=== PATIENT | female | born 1945 | race Caucasian/White ===

== ENCOUNTER 2017-06-03 12:42 | Outpatient (CLI) | payer MEDICARE ==
--- NOTE | 2017-06-04 06:54 | CT ---
CONTRAST ENHANCED CT IMAGES ABDOMEN AND PELVIS: DATE: 06/03/17. COMPARISON: Comparison is made to a previous exam from 08/11/16. FINDINGS: CT images demonstrate the lung bases to be unremarkable. No evidence of free intraperitoneal air is seen. The liver and spleen are unremarkable. The gallbladder and pancreas are unremarkable. Adrenal gland s unremarkable. There is mild to moderate dilatation of the right renal pelvis and proximal right ur eter. The right ureter at approximately image #67 appears to be anteromedially compressed by an intr apelvic mass which was not present previously. Multiple newly developed intraperitoneal pelvic masses are present and have developed in the interim. The largest of these along the anterior aspect of the peritoneal cavity. Three-dimensional measure ments measure 10.0 x 6.4 x 6.7 cm. Numerous other pelvic masses seen, too numerous to count individu ally. The abdominal aortic aneurysm has also enlarged. The maximum dimension now measures 4.2 x 4.6 cm. T he superior inferior length measures approximately 7.8 cm. This appears to have increased compared t o the previous maximum axial measurement of 4.1 x 5.3 cm. Extensive sigmoid colonic diverticulosis is also present. IMPRESSION: Numerous newly developed intraperitoneal pelvic masses. One appears to be compressing the right uret er resulting in some right-sided hydronephrosis. Message left at 3:02 p.m. on 06/03/17. CODE CR POS: [facility]
== END 2017-06-03 12:43 | disposition home or self-care (01) ==
LOC: SCSCT 12:42
PROVIDERS: ATTEND Internal Medicine Hematology & Oncology
DX: C26.0 Malignant neoplasm of intestinal tract, part unspecified (principal); R19.00 Intra-abdominal and pelvic swelling, mass and lump, unspecified site; N13.30 Unspecified hydronephrosis
CPT/HCPCS: 36415; 74177; 80053; 82248; 83615; 84100; 84550

== ENCOUNTER 2017-07-23 11:26 | Day surgery (SDC) | payer MEDICARE ==
[2017-07-22 14:41] VITALS: BMI 29.2
[2017-07-23 12:40] LABS: Hemoglobin 11.2 g/dL (12.0-16.0)
[2017-07-23] MEDS ORDERED: Midazolam HCl 2 mg/2 ml Vial ONE (13:07)
[2017-07-23] MEDS ORDERED: ePHEDrine/0.9% NaCl/PF SYRINGE 50 mg/10 ml ONE (14:05)
[2017-07-23] MEDS ORDERED: PHENYLEPHRINE-NS 100 MCG/ML 10 ML SYRINGE ONE (14:05)
[2017-07-23] MEDS ORDERED: Propofol 200 MG/20 ML VIAL ONE (14:05)
--- NOTE | 2017-07-23 18:24 | OP ---
PREPROCEDURE DIAGNOSES: 1. Anemia with some concern for gastrointestinal bleeding. Hemoglobin was 9.9 on 07/22. 2. Recent cardiac myocardial infarction with stent placement in 06/2017 with 2 stents placed, starte d Plavix at that time. 3. Hemoglobin 11.5 today. 4. Questionable reported "dark stools" and in the office yesterday had some scant red blood with bro wn stool in the rectal exam. 5. History of gastrointestinal stromal tumor, metastatic. POSTPROCEDURE DIAGNOSES: 1. Normal esophagogastroduodenoscopy. 2. Colonoscopy notable for diverticulosis coli in sigmoid colon and internal hemorrhoids, likely allyson rce of bleeding. 3. No active bleeding. Otherwise no ulcers or erosions. ANESTHESIA: TIVA. PROCEDURE IN DETAIL: After the patient was informed of the risks, benefits, possible complications o f endoscopy including perforation, bleeding, reactions to medication and aspiration, informed consent was obtained. The patient was brought to endoscopy suite where she was sedated in gradual fashion. Once she was comfortable, a bite block was placed in incisural orifice. The endoscope was advanced through the esophagus, stomach and second and third portion of duodenum. The esophagus was normal. The stomach was normal. The duodenum was normal to the third portions. No bleeding sites were ident ified, no gastritis was noted. Retroflexed views in the stomach were normal. The scope was removed. The patient was turned in the room. A rectal examination was performed revealing significant interna l hemorrhoids with no active bleeding. The endoscope was advanced through anal canal, through the co kamla to the cecum which was identified by ileocecal valve and appendiceal orifice. Terminal ileum was normal. There were no bleeding sites or tumors noted in the colon. There was diverticulosis coli i n the left colon. Retroflexed views revealed prominent internal hemorrhoids. The scope was removed. The patient tolerated the procedure well with no complications. If the patient has ongoing question of bleeding, we consider capsule endoscopy of the small bowel.
--- NOTE | 2017-07-25 09:17 | EKG ---
Test Reason : PREOP Blood Pressure : / mmHG Vent. Rate : 060 BPM Atrial Rate : 060 BPM P-R Int : 170 ms QRS Dur : 086 ms QT Int : 392 ms P-R-T Axes : 045 -05 035 degrees QTc Int : 392 ms Normal sinus rhythm Normal ECG When compared with ECG of 29-JUL-2014 20:38, Nonspecific T wave abnormality now evident in Lateral leads Confirmed by ASHANTI GARVEY ([id number]) on 07/25/2017 9:17:28 AM Referred By: SONIA Confirmed By:ASHANTI GARVEY
== END 2017-07-23 15:08 | disposition home or self-care (01) ==
LOC: SDC 11:26
PROVIDERS: ATTEND Internal Medicine Gastroenterology
PROC: 0DJD8ZZ Inspection of Lower Intestinal Tract, Via Natural or Artificial Opening Endoscopic (ICD-10-PCS; principal; 2017-07-23)
PROC: 0DJ08ZZ Inspection of Upper Intestinal Tract, Via Natural or Artificial Opening Endoscopic (ICD-10-PCS; 2017-07-23)
DX: D64.9 Anemia, unspecified (principal); I25.2 Old myocardial infarction; K57.30 Diverticulosis of large intestine without perforation or abscess without bleeding; K64.8 Other hemorrhoids; I10 Essential (primary) hypertension; E03.9 Hypothyroidism, unspecified; M35.00 Sjogren syndrome, unspecified; M35.9 Systemic involvement of connective tissue, unspecified; E89.2 Postprocedural hypoparathyroidism; C79.89 Secondary malignant neoplasm of other specified sites; C80.1 Malignant (primary) neoplasm, unspecified; Z79.02 Long term (current) use of antithrombotics/antiplatelets; Z79.899 Other long term (current) drug therapy; Z88.1 Allergy status to other antibiotic agents; Z88.2 Allergy status to sulfonamides; Z88.8 Allergy status to other drugs, medicaments and biological substances; Z91.018 Allergy to other foods; Z98.41 Cataract extraction status, right eye; Z98.42 Cataract extraction status, left eye; Z98.51 Tubal ligation status; Z95.820 Peripheral vascular angioplasty status with implants and grafts; Z90.49 Acquired absence of other specified parts of digestive tract; Z98.890 Other specified postprocedural states
CPT/HCPCS: 36415; 85014; 85018; 93005; 93010; J2250; J2704

== ENCOUNTER 2017-08-10 09:10 | Outpatient (CLI) | payer MEDICARE ==
--- NOTE | 2017-08-10 14:05 | CT ---
CT ABDOMEN AND PELVIS WITH CONTRAST: HISTORY: C26.0, GI stromal tumor. COMPARISON: CT abdomen and pelvis 06/03/17 as well as multiple prior examinations dating back to 2012. FINDINGS: There are some lung cysts in the lung bases. No pleural effusion. No pericardial effusion. There is a hypodensity at hepatic segment 8 slightly decreased in size to comparison examination mati uring 1.1 x 0.9 cm and previously 1.5 x 1.4 cm. The anterior abdominal intraperitoneal mass had mati ured 9.9 x 6.4 cm and now measures 6.3 x 4.1 cm. Smaller nodules have also decreased in size in the peritoneal cavity, for example near the fundus of the uterus had measured 2.5 x 3.2 cm and now 1.4 x 1.5 cm. There are bilateral fat-containing inguinal hernias. Mild wall thickening of the sigmoid colon with extensive diverticular disease. No dilated loops of large or small bowel. Small bowel suture materi al is again seen. There are no new intraperitoneal nodules. The aortic aneurysm measures up to 4.6 x 4.2 cm, unchanged from the comparison examination. No left-sided hydronephrosis. There is mild pr ominence of the right renal pelvis with normal appearance of the ureter suggesting UPJ obstruction. The right SI joint has sclerosis with subchondral cyst formation. Moderate degenerative narrowing of the pubic symphysis. Moderate facet arthrosis to the lumbar spine. IMPRESSION: Marked interval improvement of the intraperitoneal pelvic masses as well as size decreased hepatic se gment 8 mass. POS: [facility]
== END 2017-08-10 09:11 | disposition home or self-care (01) ==
LOC: SCSCT 09:10
PROVIDERS: ATTEND Internal Medicine Hematology & Oncology
DX: C49.A0 Gastrointestinal stromal tumor, unspecified site (principal); R19.00 Intra-abdominal and pelvic swelling, mass and lump, unspecified site
CPT/HCPCS: 74177

== ENCOUNTER 2017-10-20 13:03 | Day surgery (SDC) | payer MEDICARE ==
[2017-10-20] MEDS ORDERED: diphenhydrAMINE 25 MG CAP PO SCH (15:15)
[2017-10-20] MEDS ORDERED: Acetaminophen 500 MG TAB PO SCH (15:15)
[2017-10-20 18:27] VITALS: BP 143/65; TEMP 98.6
[2017-10-20 18:52] LABS: #Basophils 0.1 thou/uL (0.0-0.2); #Eosinphils 0.2 thou/uL (0.0-0.7); #Lymphocytes 1.2 thou/uL (1.20-3.40); #Monocytes 0.4 thou/uL (0.11-0.59); %Basophils 1.3 % (0.0-1.0); %Eosinophils 4.6 % (0.0-10.0); %Lymphocytes 31.9 % (21.0-51.0); %Monocytes 9.6 % (0.0-10.0); %Neutrophils 52.6 % (42.0-75.0); Hemoglobin 12.4 g/dL (12.0-16.0); Mean Corpuscular HGB CONC 32.8 g/dL (32.0-36.0); Mean Corpuscular Hemoglobin 32.3 pg (27.0-31.0); Mean Corpuscular Volume 98.5 fl (81.0-99.0); Mean Platelet Volume 6.9 fL (7.4-10.4); Platelet Count 153 thou/uL (130-400); RBC Distribution Width 13.9 % (11.5-14.5); Red Blood Cell (RBC) Count 3.84 mill/uL (4.20-5.40); White Blood Cell (WBC) Count 3.9 thou/uL (4.8-10.8)
== END 2017-10-20 19:00 | disposition home or self-care (01) ==
LOC: ONC/OP 13:03
PROVIDERS: ATTEND Internal Medicine Hematology & Oncology
PROC: 30233N1 Transfusion of Nonautologous Red Blood Cells into Peripheral Vein, Percutaneous Approach (ICD-10-PCS; principal; 2017-10-20)
DX: D64.9 Anemia, unspecified (principal); D69.6 Thrombocytopenia, unspecified; Z87.891 Personal history of nicotine dependence; Z88.1 Allergy status to other antibiotic agents; Z88.2 Allergy status to sulfonamides; Z88.8 Allergy status to other drugs, medicaments and biological substances; Z91.018 Allergy to other foods; Z79.02 Long term (current) use of antithrombotics/antiplatelets; Z79.899 Other long term (current) drug therapy
CPT/HCPCS: 36415; 36430; 85025; 86850; 86900; 86901; P9016

== ENCOUNTER 2017-10-25 09:34 | Outpatient (CLI) | payer MEDICARE ==
--- NOTE | 2017-10-25 12:49 | CT ---
CONTRAST ENHANCED CT IMAGES ABDOMEN AND PELVIS: DATE: 10/25/17: COMPARISON: Comparison is made to a previous exam from 08/10/17. HISTORY: A 72-year-old with a history of abdominal aortic aneurysm and intraabdominal mass. Gastrointestinal stromal tumor, D50.0 and I71.4, and C49.4. FINDINGS: CT images of abdomen and pelvic demonstrate the lung bases to demonstrate some minimal areas of paren chymal scar. No evidence of free intraperitoneal air is seen. Midline anterior abdominal wall incis ion is present. The liver again demonstrates an area of hypodensity in segment 8 unchanged since the previous exam. The spleen is unremarkable. The gallbladder and pancreas are unremarkable. Adrenal glands and kidneys are unremarkable. Again, abdominal aortic aneurysm is seen, diameter not signifi cantly changed since the previous exam. No evidence of perianeurysmal hemorrhage seen. Multiple soft tissue masses seen within the peritoneal cavity seen in the central to mid abdomen ante riorly and in the mid peritoneal region. There is also an additional lesion seen adjacent to the fun dus of the uterus. These lesions are all unchanged. Numerous colonic diverticula are also present w ith areas of thickening seen in the sigmoid colon concerning for some inflammatory changes. IMPRESSION: 1. Hepatic parenchymal lesion as well as numerous intraperitoneal masses stable since the previous c omparison CT from approximately 3 months earlier. 2. Stable abdominal aortic aneurysm. POS: [facility]
== END 2017-10-25 09:35 | disposition home or self-care (01) ==
LOC: SCSCT 09:34
PROVIDERS: ATTEND Internal Medicine Gastroenterology
DX: I71.4 Abdominal aortic aneurysm, without rupture (principal); D50.0 Iron deficiency anemia secondary to blood loss (chronic); C49.A0 Gastrointestinal stromal tumor, unspecified site
CPT/HCPCS: 74160

== ENCOUNTER 2018-02-11 13:42 | Inpatient (IN) | payer MEDICARE ==
[~2018-02-11 13:42] MED LIST: ISOVUE-370 76%-LOCM 1 ML ONE
[2018-02-11] MEDS ORDERED: Ondansetron HCl/PF 4 MG/2 ML Vial ONE ×2 (14:45→16:38)
[2018-02-11] MEDS ORDERED: Morphine 4 MG/ML VIAL ONE (14:45)
[2018-02-11 15:16] LABS: #Eosinphils 0.1 thou/uL (0.0-0.7); #Monocytes 0.5 thou/uL (0.11-0.59); #Neutrophils 5.2 thou/uL (1.40-6.50); %Basophils 0.4 % (0.0-1.0); %Eosinophils 2.1 % (0.0-10.0); %Lymphocytes 14.3 % (21.0-51.0); %Monocytes 7.2 % (0.0-10.0); %Neutrophils 76.1 % (42.0-75.0); Hemoglobin 10.8 g/dL (12.0-16.0); Mean Corpuscular HGB CONC 34.1 g/dL (32.0-36.0); Mean Corpuscular Hemoglobin 33.6 pg (27.0-31.0); Mean Corpuscular Volume 98.6 fL (78.0-98.0); Mean Platelet Volume 7.3 fL (7.4-10.4); Platelet Count 120 thou/uL (130-400); RBC Distribution Width 11.8 % (11.5-14.5); Red Blood Cell (RBC) Count 3.22 mill/uL (4.20-5.40); White Blood Cell (WBC) Count 6.8 thou/uL (4.8-10.8)
[2018-02-11 15:35] LABS: ALT (SGPT) 22 U/L (8-55); AST (SGOT) 33 U/L (5-34); Albumin 3.9 g/dL (3.4-4.8); Alkaline Phosphatase 58 U/L (40-150); Anion Gap 13 mmol/L (10-20); BUN (Urea Nitrogen) 22 mg/dL (9.8-20.1); Bilirubin, Total 0.6 mg/dL (0.2-1.2); Calc. Creatinine Clearance 0 mL/min (70-130); Calcium 10.5 mg/dL (7.8-10.44); Carbon Dioxide 27 mmol/L (23-31); Chloride 101 mmol/L (98-107); Estimated GFR-MDRD 42; Globulin 2.5 g/dL (2.4-3.5); Glucose 118 mg/dL (83-110); Lipase 25 U/L (8-78); Potassium 4.4 mmol/L (3.5-5.1); Protein, Total 6.4 g/dL (6.0-8.3); Sodium 137 mmol/L (136-145)
[2018-02-11 15:40] LABS: Troponin I Less than 0.010 ng/mL (< 0.028)
--- NOTE | 2018-02-11 15:40 | RAD ---
PORTABLE AP CHEST XRAY: DATE: 02/11/18. HISTORY: Stomach cancer. Nausea, vomiting, and diarrhea for 3 days. Epigastric pain radiating to the suprapu bic region. COMPARISON: 03/11/13. FINDINGS: Left-sided central venous catheter is no longer in place. The cardiac silhouette is magnified by pro jection. The pulmonary vasculature is within normal limits. The lungs are clear on today's exam. N o other interval change. IMPRESSION: No acute cardiopulmonary process. POS: [facility]
[2018-02-11 15:44] LABS: CKMB 7.7 ng/mL (0-6.6)
[2018-02-11] MEDS ORDERED: metroNIDAZOLE 500 MG/100 ML BAG ONE (15:51)
--- NOTE | 2018-02-11 17:10 | CT ---
CT ABDOMEN AND PELVIS WITH IV CONTRAST: Date: 02/11/18 HISTORY: Abdominal pain with pain in lower abdomen and associated vomiting. COMPARISON: 10/25/17 and 08/10/17. FINDINGS: There is bibasilar atelectasis. Vascular calcifications are again seen in the coronary arteries, as well as involving the abdominal a maryjane and iliac arteries. The juxtarenal abdominal aortic aneurysm is again seen, with greatest AP dimension of 4.9 cm, with ec centric mural thrombus again present. The length of this aneurysm measures approximately 8.6 cm. There is a stable hypodense lesion seen within the lateral aspect of the right hepatic lobe measuring approximately 1.4 cm. This does not demonstrate characteristics compatible with a cyst. The previously noted abdominal masses are again present within the anterior and mid pelvis, with ante riorly located abdominal mass, again measuring 5.7 cm x approximately 4.0 cm, and the mass seen just anterior to the region of the sacral promontory measuring 3.8 cm also stable in size. Smaller nodular density adjacent to right aspect of uterus is again noted, but is smaller in size compared to study on 10/25/17. This nodule measures approximately 1.1 cm and previously measured 2.1 cm. There is a stable hypodense left renal lesion. The spleen, pancreas, bilateral adrenal glands, and right kidney, as well as urinary bladder and uter us demonstrate a normal CT appearance. There are dilated loops of small bowel seen within the central and left aspect of the abdomen extendi ng into the pelvis with loops of bowel measuring up to 3.1 cm. There is a greater degree of dilatatio n in the region of suture material involving a loop of small bowel within the central abdomen, but th is does not appear to be the site of transition, and site of transition is seen within the upper pelv is in the midline. The exact etiology is uncertain. Stomach and duodenum, as well as most proximal je junal loops do appear more normal in caliber with decompressed distal loops of ileum. Findings could be related to either adhesions or secondary to closed loop obstruction. There is edema seen adjacent to the dilated loops of small bowel in the left aspect of the abdomen. Bilateral inguinal hernias are present. Stable degenerative changes involving the sacroiliac joints bilaterally, asymmetrically greater on th e right, as well as involving the pubic symphysis. IMPRESSION: 1. Partial small bowel obstruction with dilated loops of small bowel in the left aspect of the abdom en. While there are postsurgical changes and involving a loop of bowel in the mid abdomen, the transi tion to more normal caliber bowel is seen within the midline of the upper pelvis. Findings could be r elated to adhesions or possibly closed loop type obstruction. 2. Abdominal masses, also seen on prior exam. Two of the pelvic masses adjacent to the uterus are sm aller in size on today's exam, with larger masses in the upper pelvis and overall stable in size. 3. Hypodense right hepatic lobe mass/lesion, not significantly changed in size. 4. Abdominal aortic aneurysm measuring 4.9 cm in greatest dimension, stable from prior study. 5. Colonic diverticulosis. 6. Small amount of free fluid in the pelvis. 7. Small hiatal hernia. 8. Colonic diverticulosis. POS: [facility]
[2018-02-11 17:41] LABS: Bilirubin Negative (Negative); Blood, Urine Negative (Negative); Clarity CLEAR (Clear); Glucose, Urine (Dipstick) Negative (Negative); Leukocyte Small (Negative); Nitrite Negative (Negative); Protein, Urine (Dipstick) Trace mg/dL (Neg-Trace); Specific Gravity, Urine 1.022 (1.002-1.036); Urobilinogen 0.2 mg/dL (0.2-1.0); pH, Urine 5.5 (5.0-9.0)
[2018-02-11 17:43] LABS: Bacteria/HPF None Seen HPF (None Seen); Hyaline Casts/LPF 7-10 HYALINE CAST LPF (0-3 Hyaline); Pathc Cast-AUWi Flag 1.45 (0-2.49)
[2018-02-11 17:54] LABS: Renal Epithelial None Seen HPF (0-3); Transitional Epithelial NONE SEEN HPF (0-3)
[2018-02-11] MEDS ORDERED: Pantoprazole 40 MG VIAL ONE (20:23)
--- NOTE | 2018-02-11 22:12 | RAD ---
RADIOGRAPH CHEST 1 VIEW: Date: 02/11/18 Time: 9:27 p.m. HISTORY: 73-year-old female status post NG tube placement. COMPARISON: 02/11/18, 2:53 p.m. FINDINGS: Significant portions of the bilateral upper lobes are excluded from the field of view. There is a new NG tube which courses along the expected path of the gastric body, with distal tip at midline. No ev idence of gaseous distention of the stomach. Contrast material in bilateral prominent extrarenal pelv es from CT earlier today. No pneumoperitoneum. IMPRESSION: Nasogastric tube placement with distal tip in the expected location of the mid or distal gastric body . SANDRA [] POS: [facility]
[2018-02-11] MEDS ORDERED: Ondansetron HCl/PF 4 MG/2 ML Vial IVP PRN (22:35)
[2018-02-11] MEDS ORDERED: Ondansetron ODT 4 MG TAB SL PRN (22:35)
[2018-02-11] MEDS ORDERED: Acetaminophen 325 MG TAB PO PRN (22:36)
[2018-02-11] MEDS: Lactated Ringer's 1,000 ML IV SCH (23:10)
[2018-02-12] MEDS: Fentanyl 100 MCG/2 ML VIAL SLOW IVP PRN ×4 (00:30→14:25)
[2018-02-12] MEDS: Ondansetron HCl/PF 4 MG/2 ML Vial IVP PRN (00:40)
[2018-02-12 01:17] VITALS: BMI 28.0
[2018-02-12 04:25] LABS: #Lymphocytes 0.7 thou/uL (1.20-3.40); #Monocytes 0.5 thou/uL (0.11-0.59); #Neutrophils 3.1 thou/uL (1.40-6.50); %Basophils 0.4 % (0.0-1.0); %Eosinophils 0.7 % (0.0-10.0); %Lymphocytes 16.3 % (21.0-51.0); %Monocytes 11.8 % (0.0-10.0); %Neutrophils 70.9 % (42.0-75.0); Hemoglobin 10.9 g/dL (12.0-16.0); Mean Corpuscular HGB CONC 34.9 g/dL (32.0-36.0); Mean Corpuscular Hemoglobin 34.1 pg (27.0-31.0); Mean Corpuscular Volume 97.7 fL (78.0-98.0); Mean Platelet Volume 7.4 fL (7.4-10.4); Platelet Count 137 thou/uL (130-400); RBC Distribution Width 11.8 % (11.5-14.5); White Blood Cell (WBC) Count 4.4 thou/uL (4.8-10.8)
[2018-02-12 04:46] LABS: Anion Gap 13 mmol/L (10-20); BUN (Urea Nitrogen) 16 mg/dL (9.8-20.1); Calc. Creatinine Clearance 67 mL/min (70-130); Calcium 9.5 mg/dL (7.8-10.44); Carbon Dioxide 24 mmol/L (23-31); Chloride 104 mmol/L (98-107); Estimated GFR-MDRD 70; Glucose 104 mg/dL (83-110); Potassium 4.3 mmol/L (3.5-5.1); Sodium 137 mmol/L (136-145)
[2018-02-12] MEDS ORDERED: cefTRIAXone\\ROCEPHIN 1 GM in Sodium Chloride 0.9% 100 ML IVPB SCH (05:15)
[2018-02-12] MEDS: Levothyroxine Sodium 75 MCG TAB PO SCH (06:48)
[2018-02-12] MEDS: Lactated Ringer's 1,000 ML IV SCH ×2 (08:28→15:58)
[2018-02-12] MEDS: Gabapentin 300 MG CAP PO SCH ×2 (08:29→21:46)
[2018-02-12] MEDS: Citalopram 20 MG TAB PO SCH (08:30)
[2018-02-12] MEDS: Enoxaparin Sodium 40 MG/0.4 ML SYRINGE SC SCH (08:31)
[2018-02-12] MEDS ORDERED: Clopidogrel Bisulfate 75 MG TAB PO SCH (09:00)
[2018-02-12] MEDS ORDERED: Ondansetron HCl/PF 4 MG/2 ML Vial SLOW IVP PRN (10:52)
--- NOTE | 2018-02-12 11:31 | CON ---
DATE OF CONSULTATION: 02/12/2018 HISTORY OF PRESENT ILLNESS: Ms. Wall is a 73-year-old female with a history of gastrointestinal st romal tumor, currently stabilized on Gleevec oral therapy, who presented to the emergency room with c omplaints of acute onset nausea, vomiting, and abdominal pain. Abdominal CT scan in the emergency ro om did show a partial small-bowel obstruction as well as stable disease with a partial response to th e Gleevec with masses that were continuing to shrink in the abdomen. She now has an NG tube in place and still gets nauseous with a lot of movement, but feels much better. Her abdominal pain is slight ly improved. She has not had a bowel movement in a few days and denies passing gas currently. PAST MEDICAL HISTORY: 1. Gastrointestinal stromal tumor, currently with abdominal masses, but these have shown a partial r esponse to Gleevec. 2. Coronary artery disease, status post myocardial infarction earlier this year. 3. Hypercholesterolemia. 4. Neuropathy. 5. Hypothyroidism. 6. Hypertension. 7. Anxiety. 8. Abdominal aortic aneurysm, which has been managed conservatively. CURRENT MEDICATIONS: 1. Tylenol p.r.n. 2. Atorvastatin 10 mg p.o. at bedtime. 3. Ceftriaxone 1 gram IV every day. 4. Celexa 20 mg p.o. daily. 5. Plavix 75 mg p.o. daily. 6. Lovenox 40 mg subcu daily. 7. Neurontin 900 mg p.o. b.i.d. 8. Synthroid 75 mcg p.o. daily. 9. Ativan 0.5 mg p.o. q.8 hours p.r.n. anxiety. 10. Metoprolol XL 100 mg p.o. daily. 11. Zofran 4 mg IV q.6 hours p.r.n. 12. Gleevec 400 mg p.o. at bedtime although I do not think she is getting this in the hospital. ALLERGIES: SULFA and RIFAMPIN. SOCIAL HISTORY: She lives with her who is quite depressed. She denies tobacco or alcohol us e. FAMILY HISTORY: Noncontributory. REVIEW OF SYSTEMS: Otherwise 10 point review of systems is negative including no fevers or chills. PHYSICAL EXAMINATION: VITAL SIGNS: Temperature 98.8, pulse 72, respirations 16, O2 sat 99% on 2 liters nasal cannula, bloo d pressure 125/60. GENERAL: She is elderly, in no acute distress, pleasant currently. HEENT: Extraocular muscles are intact. Pupils react to light. She has no oral cavity lesions. NG tube is in place and secured. NECK: Supple, without lymphadenopathy. CARDIOVASCULAR: Regular rhythm. LUNGS: Clear to auscultation anteriorly. ABDOMEN: No current bowel sounds. Her abdomen is soft and somewhat tender, but no rebounding or gua rding with the NG tube in place. EXTREMITIES: No edema. No petechia. LABORATORY DATA: White blood cell count 4.4, hemoglobin 10.9, platelets 137. Sodium 137, potassium 4.3, chloride 104, CO2 24, BUN 16, creatinine 0.8, glucose 104, calcium 9.5. CK-MB 7.7. Troponin I less than 0.01. IMAGING DATA: CT scan done in the emergency room of the abdomen and pelvis in 02/11/2018 showed prev iously no abdominal mass is again seen within the anterior and mid pelvis measuring 5.7 x 4 cm. Ther e is a mass seen just anterior to the region of the sacral promontory measuring 3.8 cm, these are bot h stable in size. There are smaller nodular densities to the right of the uterus compared to the Feb ruary film and one of these lung nodules for example measures 1.1 cm and previously measured 2.1 cm. A partial small-bowel obstruction is noted with dilated loops of small bowel on the CAT scan. ASSESSMENT: A 73-year-old female with: 1. Partial small-bowel obstruction, now improving symptomatically with NG tube in place. 2. History of gastrointestinal stromal tumor. 3. Coronary artery disease, status post myocardial infarction. 4. Abdominal aortic aneurysm which has been managed conservatively. PLAN: 1. She is n.p.o. and has an NG tube in place, currently she is under conservative management. We ap preciate the surgeons help with this. Obviously, if she improves clinically without surgery, this wo uld be the best of all options. 2. We will follow peripherally with you as I do not think gastrointestinal stromal tumor is currentl y playing a role in this. 3. She will get back on Gleevec when she can take n.p.o. properly.
[2018-02-12] MEDS ORDERED: Chloraseptic Spray 180 ml Bottle PO PRN (12:44)
--- NOTE | 2018-02-12 14:28 | HP ---
PRIMARY CARE PHYSICIAN: Erica Hook M.D. CODE STATUS: FULL CODE. TIME OF EVALUATION: 9:00 p.m. CHIEF COMPLAINT: Abdominal pain. HISTORY OF PRESENT ILLNESS: This is a 73-year-old female patient with past medical history of neuroe ndocrine tumor with previous intra-abdominal surgeries, also history of Sjogren's syndrome, neuropath y, Raynaud's, hypothyroidism, hyperlipidemia, hypertension, came to the hospital after having severe abdominal pain that has been present for the past couple of days; however, it got very severe, reason why she came to the hospital. No clear triggers, no alleviating factors, pain was rated 10/10 when severe, associated with nausea and vomiting. CAT scan was done and showed the patient has partial sm all-bowel obstruction. REVIEW OF SYSTEMS: Constitutional: No fever or chills or generalized weakness. Respiratory: No co ugh, sputum production, shortness of breath. Cardiovascular: No chest pain, palpitation, shortness of breath. Gastrointestinal: Nausea, vomiting, abdominal pain. No diarrhea. DIRECTOR [employer]: No dizziness, h eadache or feeling lightheaded. Genitourinary: No burning with urination. Extremities: No leg swe lling. All other systems reviewed were negative except for the findings mentioned above. PAST MEDICAL HISTORY: As mentioned in the HPI. PAST SURGICAL HISTORY: Partial parathyroid removal, small intestine cancer, lump removal, right skyler st lymph node in the right arm, orthopedic surgery of right finger, and tubal ligation. PSYCHIATRIC HISTORY: Includes depression. FAMILY HISTORY: Reviewed and the mother has polycystic kidney disease and the father had emphysema a nd hypertension. SOCIAL HISTORY: No alcohol, no drugs. No smoking history. Lives at home with family. KNOWN ALLERGIES: BACTRIM DS, HYOSCYAMINE, RIFAMATE, and SULFA. REPORTED MEDICATIONS: Metoprolol, levothyroxine, gabapentin, Gleevec, lorazepam, lisinopril, clopido grel, pravastatin, furosemide, Celexa. PHYSICAL EXAMINATION: VITAL SIGNS: On presentation, blood pressure was 83/46 with a heart rate 55, respiratory rate was 19 , temperature 97.6, oxygen saturation was 93 on room air, and blood pressure has been stable in the 1 10s-120s after initial presentation. GENERAL APPEARANCE: The patient is alert, oriented, not in any acute distress. HEENT: Eyes: Normal conjunctivae. Moist oral mucosa. Anicteric. NECK: No JVD. RESPIRATORY: Bilateral air entry. No rales, no wheezing. Symmetric expansion. CARDIOVASCULAR: Normal rate, regular rhythm. No murmurs. No gallop. No edema. ABDOMEN: Soft, tender, bowel sounds are preserved. MUSCULOSKELETAL: Baseline range of motion and strength. No tenderness. SKIN: Warm and intact. No pallor, no rash or redness. Peripheral pulses are present. Capillary re fills seem to be intact. NEUROLOGIC: Baseline sensory. No evidence of any new focal weakness. Baseline speech. Cranial ner ves seem to be intact. PSYCHIATRIC: The patient is in good mood, no anxiety, oriented, optimal judgment. EKG was reviewed. The patient has sinus bradycardia with PVCs, ventricular rate 53, MT 142, QRS 82, QT corrected 416. Chest x-ray was done. The patient has no acute cardiopulmonary process. 1. Abdomen and pelvis CT was done. The patient has partial small-bowel obstruction with dilated loo p of small bowel in left aspect of the abdomen, but there are post-surgical changes involving the loo p of bowel within the mid abdomen which is more dilated and many dilated loops of small bowel measuri ng 5.0 cm, they transition to more normal caliber bowel seen within the midline of upper pelvis. Fin dings could be related to adhesions possibly closed loop-type obstruction given prior surgical change s. 2 Abdominal masses also seen on prior exam. Two of the pelvic masses adjacent to the uterus, smalle r in size on today's exam with larger masses in the upper pelvis, overall stable in size. 3. Hypodense right hepatic lobe mass/lesion. Not significantly changed in size. 4. Abdominal aortic aneurysm measuring 4.9 cm in greatest dimension, stable from prior study. 5. Colonic diverticulosis. 6. Small amount of free fluid in the pelvis. 7. Small hiatal hernia. 8. Colonic diverticulosis. Repeat chest x-ray, nasogastric tube placement with distal tip in expected location of the mid or dis gerson gastric body. LABORATORY DATA: Labs were reviewed. The patient had white count 6.8, hemoglobin 10.8, MCV 98, plat elet count 120. Sodium 137, potassium 4.4, chloride 101, carbon dioxide 27, anion gap 13, BUN 22 on presentation with creatinine 1.4, GFR 42, glucose 118. Lactic acid 1.7, calcium 10.5, total bilirubi n 0.6. LFTs were normal. White count in urine was 10-20. ASSESSMENT AND PLAN: The patient will be placed in the hospital with the following medical problems. 1. Small-bowel obstruction, it is partial, patient with NG tube, has a scant amount of draining flui d. We will monitor, Surgery was consulted from ER as per ER report, we will follow recommendations. Plan is put the patient to continue receiving medical management and NG tube. The patient is not a good candidate for any surgical procedure, especially given the history of having a stent placed in [facility] of this year and needed to take Plavix on a daily basis. 2. Urinary tract infection. The patient has elevated white count in urine 11-20. The patient will receive antibiotics. Urine culture to be followed and to adjust the treatment as per sensitivity. 3. Chronic macrocytic anemia, hemoglobin stable. No need for any acute intervention at this point. 4. Dehydration, likely secondary to continuous nausea and vomiting, patient had elevated BUN and cre atinine, this has resolved and follow up labs and likely secondary after given hydration. 5. Deep venous thrombosis prophylaxis. 6. History of neuroendocrine tumor essentially stable on CAT scan. No need for any acute interventi on at this point, it does not seem to be related to small-bowel obstruction.
--- NOTE | 2018-02-12 15:50 | PDOC.GSCN ---
Surgery Consult: HPI - Consult details Date: 02/12/18 Time: 12:00 History of present illness: 02/12/18 15:40 Patient admitted last night for small bowel obstruction. She has 2 day history of diffuse abdominal pain nausea and vomiting. No triggers or alleviators that she can think of and no fevers or chills. She denies previous similar episodes and had just seen her housing coordinator and was doing fine. 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 She underwent small bowel resection by Dr. Mukherjee in 2012 for perforated GI stromal tumor. This is complicated by postoperative dehiscence which was repaired. Other surgeries include a tubal ligation, parathyroid surgery, and I&D of the finger. She has multiple medical issues including Sjogren's on chronic steroids, a large abdominal aortic aneurysm which is being monitored by Dr. Chan, and coronary artery disease status post stenting in June. She is taking Plavix for her stent. Workup in the emergency room last night revealed findings consistent with a small bowel obstruction. Her anastomosis is widely patent. Her intra-abdominal masses are stable. She has an NG tube in place and states that her pain is slightly better than last night. She passed a little gas yesterday and thinks she had a bowel movement yesterday as well although she is unsure. Past medical and surgical history are as per history of present illness. She does not smoke drink or use illicit drugs. Outpatient medication list is reviewed and is as per the electronic record. Most notably she takes Gleevec Synthroid metoprolol Lasix and Plavix. Medication allergies include Bactrim rifampin hyoscyamine 10 system review of systems is negative except per history of present illness. Up until 2 days ago she was eating normally and having normal bowel movements. Physical examination. Gen. reveals a frail-appearing elderly woman in no acute distress. HEENT is unremarkable with a healed collar incision and no palpable masses or lymphadenopathy. Heart is regular with a prominent systolic murmur which is audible over the entire precordium. Lungs are clear to auscultation bilaterally abdomen abdomen is soft and nondistended. She does have bowel sounds audible. She is diffusely tender to palpation without rigidity rebound or guarding. This is somewhat worse in the lower abdomen. Her surgical incisions are well-healed. Extremities are warm well perfused without edema. Neuro no focal deficits. Psychiatric alert oriented and appropriate although anxious. CT images are reviewed and I agree with the written report. She doesn't change in caliber between the proximal and distal bowel although the transition point is not entirely clear. She has multiple intra-abdominal masses which appear stable or possibly slightly smaller than before. White count is normal and electrolytes are unremarkable. Her CK-MB was elevated on admission. Assessment: Small bowel obstruction in patient with multiple medical issues including metastatic GI stromal tumor and recent NE and cardiac stent. She is not a good candidate for surgery, so we are going to try a course of conservative management with NG decompression and bowel rest. She does have bilious output from her NG tube which appears to be in appropriate position. She was told ask her nurse to call me if her pain becomes acutely worse, but overall it seems to be slowly improving. I plan to be image her after a 24-48 hour period of conservative management as long as she remains stable or improved. If her condition worsens then surgery may be necessary despite her risks. 02/12/18 15:54 Surgery Consult: Exam - Vital signs Vital signs: Vital Signs - Most Recent Temp Pulse Resp BP Pulse Ox 98.8 F 72 16 125/68 99 02/12/18 08:00 02/12/18 08:00 02/12/18 08:00 02/12/18 08:00 02/12/18 08:00 Surgery Consult: Meds - Medications Medications: Current Medications Acetaminophen (Tylenol) 650 mg PO Q4H PRN PRN Reason: Headache/Fever or Pain Atorvastatin Calcium (Lipitor) 10 mg PO HS [facility] Citalopram Hydrobromide (Celexa) 20 mg PO DAILY [facility] Last Admin: 02/12/18 08:30 Dose: 20 mg Clopidogrel Bisulfate (Plavix) 75 mg PO HS [facility] Enoxaparin Sodium (Lovenox) 40 mg SC 09 [facility] Last Admin: 02/12/18 08:31 Dose: Not Given Fentanyl (Sublimaze) 25 mcg SLOW IVP Q2H PRN PRN Reason: Severe Pain (7-10) Last Admin: 02/12/18 14:25 Dose: 25 mcg Gabapentin (Neurontin) 900 mg PO BID [facility] Last Admin: 02/12/18 08:29 Dose: 900 mg Ceftriaxone Sodium 1 gm/ (Sodium Chloride) 100 mls @ 200 mls/hr IVPB 0600 [facility] Lactated Ringer's (Lactated Ringer's) 1,000 mls @ 115 mls/hr IV .Q8H42M [facility] Levothyroxine Sodium (Synthroid) 75 mcg PO 0600 [facility] Last Admin: 02/12/18 06:48 Dose: 75 mcg Lorazepam (Ativan) 0.5 mg PO Q8H PRN PRN Reason: Anxiety Metoprolol Succinate (Toprol Xl) 100 mg PO DAILY [facility] Last Admin: 02/12/18 08:29 Dose: Not Given Ondansetron HCl (Zofran) 4 mg IVP Q6H PRN PRN Reason: Nausea/Vomiting Last Admin: 02/12/18 00:40 Dose: 4 mg Ondansetron HCl (Zofran) 4 mg SLOW IVP Q6H PRN PRN Reason: Nausea/Vomiting (Imatinib Mesylate [ (Gleevec] 400 Mg)) 1 each PO HS [facility] Phenol (Chloraseptic [place] 180 Ml Bot) 1 ml PO BIDPRN PRN PRN Reason: Sore Throat Last Admin: 02/12/18 14:25 Dose: 1 spr - Allergies Allergies/Adverse Reactions: Allergies Allergy/AdvReac Type Severity Reaction Status Date / Time Sulfa (Sulfonamide Allergy Severe Verified 02/11/18 22:51 Antibiotics) rifampin Allergy Mild Nausea Verified 02/11/18 22:51 sulfamethoxazole Allergy Mild Rash Verified 02/11/18 22:50 [From Bactrim] trimethoprim [From Bactrim] Allergy Mild Rash Verified 02/11/18 22:50 hyoscyamine [Hyoscyamine] Allergy Nausea Verified 02/11/18 22:51 Immitation Seafood Allergy Severe Nausea Uncoded 07/29/14 22:50 Surgery Consult: Results - Labs Result Diagrams: 02/12/18 03:39 02/12/18 03:39 Lab results: Laboratory Results WBC 4.4 thou/uL (4.8-10.8) L 02/12/18 03:39 RBC 3.20 mill/uL (4.20-5.40) L 02/12/18 03:39 Hgb 10.9 g/dL (12.0-16.0) L 02/12/18 03:39 Hct 31.2 % (36.0-47.0) L 02/12/18 03:39 MCV 97.7 fL (78.0-98.0) 02/12/18 03:39 MCH 34.1 pg (27.0-31.0) H 02/12/18 03:39 MCHC 34.9 g/dL (32.0-36.0) 02/12/18 03:39 RDW 11.8 % (11.5-14.5) 02/12/18 03:39 Plt Count 137 thou/uL (130-400) 02/12/18 03:39 MPV 7.4 fL (7.4-10.4) 02/12/18 03:39 Neutrophils % 70.9 % (42.0-75.0) 02/12/18 03:39 Lymphocytes % 16.3 % (21.0-51.0) L 02/12/18 03:39 Monocytes % 11.8 % (0.0-10.0) H 02/12/18 03:39 Eosinophils % 0.7 % (0.0-10.0) 02/12/18 03:39 Basophils % 0.4 % (0.0-1.0) 02/12/18 03:39 Neutrophils # 3.1 thou/uL (1.40-6.50) 02/12/18 03:39 Lymphocytes # 0.7 thou/uL (1.20-3.40) L 02/12/18 03:39 Monocytes # 0.5 thou/uL (0.11-0.59) 02/12/18 03:39 Eosinophils # 0.0 thou/uL (0.0-0.7) 02/12/18 03:39 Basophils # 0.0 thou/uL (0.0-0.2) 02/12/18 03:39 Sodium 137 mmol/L (136-145) 02/12/18 03:39 Potassium 4.3 mmol/L (3.5-5.1) 02/12/18 03:39 Chloride 104 mmol/L (98-107) 02/12/18 03:39 Carbon Dioxide 24 mmol/L (23-31) 02/12/18 03:39 Anion Gap 13 mmol/L (10-20) 02/12/18 03:39 BUN 16 mg/dL (9.8-20.1) 02/12/18 03:39 Creatinine 0.80 mg/dL (0.6-1.1) 02/12/18 03:39 Estimated GFR (MDRD) 70 02/12/18 03:39 Glucose 104 mg/dL (83-110) 02/12/18 03:39 Lactic Acid 1.7 mmol/L (0.5-2.2) 02/11/18 15:03 Calcium 9.5 mg/dL (7.8-10.44) 02/12/18 03:39 Total Bilirubin 0.6 mg/dL (0.2-1.2) 02/11/18 15:03 AST 33 U/L (5-34) 02/11/18 15:03 ALT 22 U/L (8-55) 02/11/18 15:03 Alkaline Phosphatase 58 U/L (40-150) 02/11/18 15:03 CK-MB (CK-2) 7.7 ng/mL (0-6.6) H* 02/11/18 15:03 Troponin I Less than 0.010 ng/mL (< 0.028) 02/11/18 15:03 Serum Total Protein 6.4 g/dL (6.0-8.3) 02/11/18 15:03 Albumin 3.9 g/dL (3.4-4.8) 02/11/18 15:03 Globulin 2.5 g/dL (2.4-3.5) 02/11/18 15:03 Albumin/Globulin Ratio 1.6 g/dL (1.2-2.2) 02/11/18 15:03 Lipase 25 U/L (8-78) 02/11/18 15:03 Urine Color YELLOW (Yellow) 02/11/18 17:01 Urine Clarity CLEAR (Clear) 02/11/18 17:01 Urine pH 5.5 (5.0-9.0) 02/11/18 17:01 Ur Specific [place] 1.022 (1.002-1.036) 02/11/18 17:01 Urine Protein Trace mg/dL (Neg-Trace) 02/11/18 17:01 Urine Glucose (UA) Negative mg/dL (Negative) 02/11/18 17:01 Urine Ketones Trace mg/dL (Negative) H 02/11/18 17:01 Urine Blood Negative (Negative) 02/11/18 17:01 Urine Nitrite Negative (Negative) 02/11/18 17:01 Urine Bilirubin Negative (Negative) 02/11/18 17:01 Urine Urobilinogen 0.2 mg/dL (0.2-1.0) 02/11/18 17:01 Ur Leukocyte Esterase Small (Negative) H 02/11/18 17:01 Urine RBC 4-6 HPF (0-3) 02/11/18 17:01 Urine WBC 11-20 HPF (0-3) H 02/11/18 17:01 Ur Squamous Epith Cells 7-10 HPF (0-3) H 02/11/18 17:01 Ur Transition Epith Cell NONE SEEN HPF (0-3) 02/11/18 17:01 Ur Renal Epithelial Cell None Seen HPF (0-3) 02/11/18 17:01 Urine Bacteria None Seen HPF (None Seen) 02/11/18 17:01 Hyaline Casts 7-10 HYALINE CAST LPF (0-3 Hyaline) H 02/11/18 17:01
[2018-02-12] MEDS: Clopidogrel Bisulfate 75 MG TAB PO SCH (21:46)
[2018-02-12] MEDS: Atorvastatin Calcium 10 MG TAB PO SCH (21:46)
[2018-02-12] MEDS ORDERED: Cepastat Lozenges 1 LOZ PO PRN (22:52)
[2018-02-13] MEDS: Lactated Ringer's 1,000 ML IV SCH ×3 (00:07→15:51)
[2018-02-13] MEDS: cefTRIAXone\\ROCEPHIN 1 GM in Sodium Chloride 0.9% 100 ML IVPB SCH (06:12)
[2018-02-13] MEDS: Levothyroxine Sodium 75 MCG TAB PO SCH (06:13)
[2018-02-13] MEDS: Citalopram 20 MG TAB PO SCH (07:40)
[2018-02-13] MEDS: Enoxaparin Sodium 40 MG/0.4 ML SYRINGE SC SCH (07:41)
[2018-02-13] MEDS: Gabapentin 300 MG CAP PO SCH ×2 (07:43→21:16)
[2018-02-13 09:37] LABS: #Lymphocytes 0.9 thou/uL (1.20-3.40); #Monocytes 0.5 thou/uL (0.11-0.59); #Neutrophils 2.6 thou/uL (1.40-6.50); %Basophils 0.3 % (0.0-1.0); %Eosinophils 1.1 % (0.0-10.0); %Lymphocytes 22.3 % (21.0-51.0); %Monocytes 12.3 % (0.0-10.0); Hemoglobin 9.6 g/dL (12.0-16.0); Mean Corpuscular Hemoglobin 33.9 pg (27.0-31.0); Mean Corpuscular Volume 99.9 fL (78.0-98.0); Platelet Count 121 thou/uL (130-400); RBC Distribution Width 12.2 % (11.5-14.5); Red Blood Cell (RBC) Count 2.82 mill/uL (4.20-5.40); White Blood Cell (WBC) Count 4.1 thou/uL (4.8-10.8)
[2018-02-13 09:48] LABS: Anion Gap 11 mmol/L (10-20); BUN (Urea Nitrogen) 11 mg/dL (9.8-20.1); Calc. Creatinine Clearance 82 mL/min (70-130); Carbon Dioxide 25 mmol/L (23-31); Chloride 106 mmol/L (98-107); Estimated GFR-MDRD 89; Glucose 80 mg/dL (83-110); Potassium 3.9 mmol/L (3.5-5.1); Sodium 138 mmol/L (136-145)
[2018-02-13] MEDS: Fentanyl 100 MCG/2 ML VIAL SLOW IVP PRN (11:10)
--- NOTE | 2018-02-13 12:13 | RAD ---
2 VIEWS ABDOMEN: Date: 02/13/18 INDICATION: Small bowel obstruction. COMPARISON: Prior CT evaluation dated 02/11/18. FINDINGS: There are a few mildly dilated loops of small bowel present within the upper central abdomen, appears slightly less prominent than on the comparison CT evaluation. Gastric catheter projects in the regio n of the gastric antrum. Gas is present within the region of the colon and rectum. There is prominent vascular calcification noted involving the abdominopelvic vasculature. The patient's known infrarena l abdominal aortic aneurysm is partially visualized. No acute osseous abnormality is evident. IMPRESSION: 1. Gastric catheter projects in the region of the antrum of the stomach. 2. The mildly dilated loops of small bowel within the upper central abdomen seen on the prior CT judith luation has gradually improved in the degree of distention. 3. Infrarenal abdominal aortic aneurysm. POS: TISH
--- NOTE | 2018-02-13 13:41 | PDOC.PN ---
- Subjective Encounter Start Date: 02/13/18 Encounter Start Time: 11:30 Subjective: pt up in bed no complains - Objective Resuscitation Status: Resuscitation Status FULL:Full Resuscitation Vital Signs & Weight: Vital Signs (12 hours) Temp Pulse Resp BP Pulse Ox 02/13/18 08:30 98.7 F 73 107/64 100 02/13/18 08:00 98.1 F 77 20 Weight Admit Weight 148 lb Weight 148 lb 9 oz I&O: 02/12/18 02/13/18 02/14/18 06:59 06:59 06:59 Intake Total 2165 Output Total 350 Balance 1815 Result Diagrams: 02/13/18 09:24 02/13/18 09:24 Phys Exam - Physical Examination Neck: no nodes, no JVD, supple, full ROM Respiratory: no wheezing, no rales, no rhonchi, wheezing present, clear to auscultation bilateral Cardiovascular: RRR, no significant murmur, no rub, gallop, irregular Gastrointestinal: soft, non-tender, no distention, positive bowel sounds Dx/Plan (1) Abdominal pain Code(s): R10.9 - UNSPECIFIED ABDOMINAL PAIN Status: Acute (2) SBO (small bowel obstruction) Code(s): K56.609 - UNSP INTESTNL OBST, UNSP TO PARTIAL VERSUS COMPLETE OBST Status: Acute (3) UTI (urinary tract infection) Status: Acute - Plan pt has ng tube, abd xray mild improvement -: will continue pt's gleevac -: will also continue asa -: pt's cx indicated mild improvement * . Review of Systems - Review of Systems Respiratory: negative: Cough, Dry, Shortness of Breath, Hemoptysis, SOB with Excertion, Pleuritic Pain, Sputum, Wheezing Cardiovascular: negative: chest pain, palpitations, orthopnea, paroxysmal nocturnal dyspnea, edema, light headedness, other Gastrointestinal: Nausea, Abdominal Pain Genitourinary: negative: Dysuria, Frequency, Incontinence, Hematuria, Retention , Other Musculoskeletal: negative: Neck Pain, Shoulder Pain, Arm Pain, Back Pain, Hand Pain, Leg Pain, Foot Pain, Other - Medications/Allergies Allergies/Adverse Reactions: Allergies Allergy/AdvReac Type Severity Reaction Status Date / Time Sulfa (Sulfonamide Allergy Severe Verified 02/11/18 22:51 Antibiotics) rifampin Allergy Mild Nausea Verified 02/11/18 22:51 sulfamethoxazole Allergy Mild Rash Verified 02/11/18 22:50 [From Bactrim] trimethoprim [From Bactrim] Allergy Mild Rash Verified 02/11/18 22:50 hyoscyamine [Hyoscyamine] Allergy Nausea Verified 02/11/18 22:51 Immitation Seafood Allergy Severe Nausea Uncoded 07/29/14 22:50 Medications: Current Medications Acetaminophen (Tylenol) 650 mg PO Q4H PRN PRN Reason: Headache/Fever or Pain Atorvastatin Calcium (Lipitor) 10 mg PO [facility] Last Admin: 02/12/18 21:46 Dose: 10 mg Citalopram Hydrobromide (Celexa) 20 mg PO DAILY [facility] Last Admin: 02/13/18 07:40 Dose: 20 mg Clopidogrel Bisulfate (Plavix) 75 mg PO [facility] Last Admin: 02/12/18 21:46 Dose: 75 mg Enoxaparin Sodium (Lovenox) 40 mg SC 0900 [facility] Last Admin: 02/13/18 07:41 Dose: Not Given Fentanyl (Sublimaze) 25 mcg SLOW IVP Q2H PRN PRN Reason: Severe Pain (7-10) Last Admin: 02/13/18 11:10 Dose: 25 mcg Gabapentin (Neurontin) 900 mg PO BID [facility] Last Admin: 02/13/18 07:43 Dose: 900 mg Ceftriaxone Sodium 1 gm/ (Sodium Chloride) 100 mls @ 200 mls/hr IVPB 0600 [facility] Last Admin: 02/13/18 06:12 Dose: 100 mls Lactated Ringer's (Lactated Ringer's) 1,000 mls @ 115 mls/hr IV .Q8H42M [facility] Last Admin: 02/13/18 07:44 Dose: 1,000 mls Levothyroxine Sodium (Synthroid) 75 mcg PO 0600 [facility] Last Admin: 02/13/18 06:13 Dose: 75 mcg Lorazepam (Ativan) 0.5 mg PO Q8H PRN PRN Reason: Anxiety Metoprolol Succinate (Toprol Xl) 100 mg PO DAILY [facility] Last Admin: 02/13/18 07:41 Dose: Not Given Ondansetron HCl (Zofran) 4 mg IVP Q6H PRN PRN Reason: Nausea/Vomiting Last Admin: 02/12/18 00:40 Dose: 4 mg Ondansetron HCl (Zofran) 4 mg SLOW IVP Q6H PRN PRN Reason: Nausea/Vomiting (Imatinib Mesylate [ (Gleevec] 100 Mg)) 0 each PO HS [facility] Phenol (Chloraseptic [place] 180 Ml Bot) 1 ml PO BIDPRN PRN PRN Reason: Sore Throat Last Admin: 02/12/18 14:25 Dose: 1 spr Throat Lozenges (Cepastat Lozenges) 1 corey PO Q2H PRN PRN Reason: Sore Throat
--- NOTE | 2018-02-13 16:35 | PDOC.GSPN ---
Surgery Progress Note: Subj - Subjective Narrative: Pain is better and she thinks she passed a little gas. No fevers and vital signs are okay. Her abdomen is soft and less tender than yesterday. Bowel sounds are present although diminished. We are going to continue with bowel rest and NG decompression. I may get a small bowel follow-through with Gastrografin tomorrow. Surgery Progress Note: Obj - Vital signs Vital signs: Vital Signs - Most Recent Temp Pulse Resp BP Pulse Ox 98.7 F 73 20 107/64 100 02/13/18 08:30 02/13/18 08:30 02/13/18 08:00 02/13/18 08:30 02/13/18 08:30 Surgery Progress Note: Results - Labs Result Diagrams: 02/13/18 09:24 02/13/18 09:24 Lab results: Laboratory Results - last 24 hr 02/13/18 02/13/18 09:24 09:24 WBC 4.1 L RBC 2.82 L Hgb 9.6 L Hct 28.2 L MCV 99.9 H MCH 33.9 H MCHC 34.0 RDW 12.2 Plt Count 121 L MPV 7.0 L Neutrophils % 64.0 Lymphocytes % 22.3 Monocytes % 12.3 H Eosinophils % 1.1 Basophils % 0.3 Neutrophils # 2.6 Lymphocytes # 0.9 L Monocytes # 0.5 Eosinophils # 0.0 Basophils # 0.0 Sodium 138 Potassium 3.9 Chloride 106 Carbon Dioxide 25 Anion Gap 11 BUN 11 Creatinine 0.65 Estimated GFR (MDRD) 89 Glucose 80 L Calcium 9.0
[2018-02-13] MEDS: Atorvastatin Calcium 10 MG TAB PO SCH (21:16)
[2018-02-13] MEDS: Clopidogrel Bisulfate 75 MG TAB PO SCH (21:16)
[2018-02-13] MEDS: Ondansetron HCl/PF 4 MG/2 ML Vial IVP PRN (21:58)
[2018-02-13] MEDS: Lorazepam 0.5 MG TAB PO PRN (22:16)
[2018-02-14] MEDS: Lactated Ringer's 1,000 ML IV SCH ×3 (05:56→21:16)
[2018-02-14] MEDS: cefTRIAXone\\ROCEPHIN 1 GM in Sodium Chloride 0.9% 100 ML IVPB SCH (05:56)
[2018-02-14] MEDS: Levothyroxine Sodium 75 MCG TAB PO SCH (05:57)
[2018-02-14] MEDS: Citalopram 20 MG TAB PO SCH (08:12)
[2018-02-14] MEDS: Gabapentin 300 MG CAP PO SCH ×2 (08:13→21:17)
[2018-02-14] MEDS ORDERED: MD-Gastroview 120 ML BOT ONE (11:06)
[2018-02-14] MEDS: Enoxaparin Sodium 40 MG/0.4 ML SYRINGE SC SCH (11:24)
[2018-02-14] MEDS: Ondansetron HCl/PF 4 MG/2 ML Vial IVP PRN (16:51)
--- NOTE | 2018-02-14 17:07 | PDOC.GSPN ---
Surgery Progress Note: Subj - Subjective Narrative: Pt c/o nose and throat pain. Abd "sore" and still diffusely mildly TTP but passing flatus and liquid stool. Will get SBFT and DC NG if OK. Surgery Progress Note: Obj - Vital signs Vital signs: Vital Signs - Most Recent Temp Pulse Resp BP Pulse Ox 99.1 F 77 18 116/68 93 L 02/14/18 08:00 02/14/18 08:00 02/14/18 08:00 02/14/18 07:38 02/14/18 08:00 Surgery Progress Note: Results - Labs Result Diagrams: 02/13/18 09:24 02/13/18 09:24
--- NOTE | 2018-02-14 17:31 | RAD ---
SMALL BOWEL SERIES: 02/14/2018 HISTORY: A 73-year-old female with partial small bowel obstruction. FINDINGS: The inclined railway operator view demonstrates an NG tube in the body of the stomach. No small bowel dilation visualize d. Following Gastrografin injection into the NG tube, there is rapid progress of the contrast materi al throughout multiple nondilated loops of small intestine. The Gastrografin has reached the rectum by 1.5 hours. IMPRESSION: No small bowel obstruction. The previously demonstrated partial small bowel obstruction has resolved . POS: FABIOLA
[2018-02-14] MEDS: Clopidogrel Bisulfate 75 MG TAB PO SCH (21:17)
[2018-02-14] MEDS: Atorvastatin Calcium 10 MG TAB PO SCH (21:17)
[2018-02-15] MEDS: Lactated Ringer's 1,000 ML IV SCH ×2 (05:15→14:30)
[2018-02-15] MEDS: cefTRIAXone\\ROCEPHIN 1 GM in Sodium Chloride 0.9% 100 ML IVPB SCH (05:16)
[2018-02-15] MEDS: Levothyroxine Sodium 75 MCG TAB PO SCH (05:16)
--- NOTE | 2018-02-15 06:08 | PDOC.PN ---
- Subjective Encounter Start Date: 02/14/18 Encounter Start Time: 12:00 Subjective: pt up in chair complains of NG tube discomfort - Objective Resuscitation Status: Resuscitation Status FULL:Full Resuscitation Vital Signs & Weight: Vital Signs (12 hours) Temp Pulse Resp BP Pulse Ox 02/14/18 20:35 97.9 F 76 16 137/75 96 02/14/18 19:43 97.9 F 76 18 96 Weight Admit Weight 148 lb Weight 148 lb 9 oz I&O: 02/13/18 02/14/18 02/15/18 06:59 06:59 06:59 Intake Total 2165 2065 3045 Output Total 500 100 150 Balance 1665 1965 2895 Result Diagrams: 02/13/18 09:24 02/13/18 09:24 Phys Exam - Physical Examination Neck: no nodes, no JVD, supple, full ROM Respiratory: no wheezing, no rales, no rhonchi, wheezing present, clear to auscultation bilateral Cardiovascular: RRR, no significant murmur, no rub, gallop, irregular Gastrointestinal: soft, positive bowel sounds mild discomfort all over Musculoskeletal: no edema, pulses present, edema present Neurological: non-focal, normal sensation, moves all 4 limbs Dx/Plan (1) Abdominal pain Code(s): R10.9 - UNSPECIFIED ABDOMINAL PAIN Status: Acute (2) SBO (small bowel obstruction) Code(s): K56.609 - UNSP INTESTNL OBST, UNSP TO PARTIAL VERSUS COMPLETE OBST Status: Acute (3) UTI (urinary tract infection) Status: Acute - Plan per surgery pt to have small bowel xray -: will check bmp in am -: pt having bm and passing gas -: will discontinue abx in am * . Review of Systems - Review of Systems ENT: Other (throat soreness) Respiratory: negative: Cough, Dry, Shortness of Breath, Hemoptysis, SOB with Excertion, Pleuritic Pain, Sputum, Wheezing Gastrointestinal: Abdominal Pain Genitourinary: negative: Dysuria, Frequency, Incontinence, Hematuria, Retention , Other Musculoskeletal: negative: Neck Pain, Shoulder Pain, Arm Pain, Back Pain, Hand Pain, Leg Pain, Foot Pain, Other - Medications/Allergies Allergies/Adverse Reactions: Allergies Allergy/AdvReac Type Severity Reaction Status Date / Time Sulfa (Sulfonamide Allergy Severe Verified 02/11/18 22:51 Antibiotics) rifampin Allergy Mild Nausea Verified 02/11/18 22:51 sulfamethoxazole Allergy Mild Rash Verified 02/11/18 22:50 [From Bactrim] trimethoprim [From Bactrim] Allergy Mild Rash Verified 02/11/18 22:50 hyoscyamine [Hyoscyamine] Allergy Nausea Verified 02/11/18 22:51 Immitation Seafood Allergy Severe Nausea Uncoded 07/29/14 22:50 Medications: Current Medications Acetaminophen (Tylenol) 650 mg PO Q4H PRN PRN Reason: Headache/Fever or Pain Atorvastatin Calcium (Lipitor) 10 mg PO HS [facility] Last Admin: 02/14/18 21:17 Dose: 10 mg Citalopram Hydrobromide (Celexa) 20 mg PO DAILY [facility] Last Admin: 02/14/18 08:12 Dose: 20 mg Clopidogrel Bisulfate (Plavix) 75 mg PO [facility] Last Admin: 02/14/18 21:17 Dose: 75 mg Enoxaparin Sodium (Lovenox) 40 mg SC 09 [facility] Last Admin: 02/14/18 11:24 Dose: Not Given Fentanyl (Sublimaze) 25 mcg SLOW IVP Q2H PRN PRN Reason: Severe Pain (7-10) Last Admin: 02/13/18 11:10 Dose: 25 mcg Gabapentin (Neurontin) 900 mg PO BID [facility] Last Admin: 02/14/18 21:17 Dose: 900 mg Ceftriaxone Sodium 1 gm/ (Sodium Chloride) 100 mls @ 200 mls/hr IVPB 0600 [facility] Last Admin: 02/15/18 05:16 Dose: 100 mls Lactated Ringer's (Lactated Ringer's) 1,000 mls @ 115 mls/hr IV .Q8H42M [facility] Last Admin: 02/15/18 05:15 Dose: 1,000 mls Levothyroxine Sodium (Synthroid) 75 mcg PO 0600 [facility] Last Admin: 02/15/18 05:16 Dose: 75 mcg Lorazepam (Ativan) 0.5 mg PO Q8H PRN PRN Reason: Anxiety Last Admin: 02/13/18 22:16 Dose: 0.5 mg Metoprolol Succinate (Toprol Xl) 100 mg PO DAILY [facility] Last Admin: 02/14/18 08:13 Dose: Not Given Ondansetron HCl (Zofran) 4 mg IVP Q6H PRN PRN Reason: Nausea/Vomiting Last Admin: 02/14/18 16:51 Dose: 4 mg Ondansetron HCl (Zofran) 4 mg SLOW IVP Q6H PRN PRN Reason: Nausea/Vomiting (Imatinib Mesylate [ (Gleevec] 100 Mg)) 0 each PO HS [facility] Last Admin: 02/14/18 21:17 Dose: 1 each Phenol (Chloraseptic [place] 180 Ml Bot) 1 ml PO BIDPRN PRN PRN Reason: Sore Throat Last Admin: 02/12/18 14:25 Dose: 1 spr Throat Lozenges (Cepastat Lozenges) 1 corey PO Q2H PRN PRN Reason: Sore Throat
[2018-02-15 07:35] LABS: Anion Gap 6 mmol/L (10-20); BUN (Urea Nitrogen) 8 mg/dL (9.8-20.1); Calc. Creatinine Clearance 81 mL/min (70-130); Calcium 9.3 mg/dL (7.8-10.44); Carbon Dioxide 33 mmol/L (23-31); Chloride 103 mmol/L (98-107); Estimated GFR-MDRD 88; Glucose 90 mg/dL (83-110); Magnesium 1.7 mg/dL (1.6-2.6); Potassium 3.3 mmol/L (3.5-5.1); Sodium 139 mmol/L (136-145)
[2018-02-15 07:42] LABS: Phosphorus 1.5 mg/dL (2.3-4.7)
[2018-02-15] MEDS ORDERED: Potassium Phosphate 12 MMOL in Sodium Chloride 0.9% 100 ML IVPB SCH (08:00)
[2018-02-15] MEDS: Citalopram 20 MG TAB PO SCH (08:12)
[2018-02-15] MEDS: Gabapentin 300 MG CAP PO SCH ×2 (08:12→21:17)
[2018-02-15] MEDS: Enoxaparin Sodium 40 MG/0.4 ML SYRINGE SC SCH (08:13)
--- NOTE | 2018-02-15 11:05 | PQF ---
CLINICAL DOCUMENTATION IMPROVEMENT CLARIFICATION FORM: ICD-10 Updated PLEASE DO AN ADDENDUM TO THE PROGRESS NOTE WITH ANY DOCUMENTATION UPDATES OR ADDITIONS AND CARRY THROUGH TO DC SUMMARY. THANK YOU. DATE: 02/15, 02/16 ATTN: DR. PENNY WATKINS / DR. FARIHA BOSTON Please exercise your independent, professional judgment in responding to the clarification form. Clinical indicators are provided on the bottom of this form for your review. Please check appropriate box(s): [ ] Acute Renal Failure (ARF) / Acute Kidney Injury (JESSE) [ ] Other Etiology or underlying conditions related to the diagnosis of ARF/ JESSE: [ ] Acute on Chronic Renal Failure please specify Stage of CKD (see below) [ ] Other diagnosis [ x ] Unable to determine National Kidney Foundation Guidelines for CKD Staging Stage I Kidney damage with normal or increased GFR GFR > 90 Stage II Kidney damage with mildly decreased GFR GFR 60-89 Stage III Kidney damage with moderately decreased GFR GFR 30-59 Stage IV Kidney damage with severely decreased GFR GFR 16-29 Stage V Kidney failure GFR<15 ESRD End Stage Renal Disease On dialysis For continuity of documentation, please document condition throughout progress notes and discharge summary. Thank You. CLINICAL INDICATORS - SIGNS / SYMPTOMS / LABS BUN: 22 CR: 1.24 GFR: 42 (ADMIT, 02/11) 16 0.80 70 (02/12) 11 0.65 89 (02/13) 8 0.66 88 (02/15) ER PRESENTATION 02/11: NAUSEA W/VOMITING X3 DAYS; TREATMENT: 2L NS, IV ZOFRAN H&P 02/11 (FRANKLYN): ASSESSMENT/PLAN: 4) DEHYDRATION, LIKELY 2/2 CONTINUOUS N /V, PT HAD ELEVATED BUN & CR, THIS HAS RESOLVED RISK FACTORS: PARTIAL SBO NAUSEA W/VOMITING DEHYDRATION TREATMENT: IVF (LR 02/11 - PRESENT; NS 2L IN ER) SERIAL BASMET LABS THANK YOU! Tami (This form is maintained as a part of the permanent medical record) 2014 [email or web address]. All Rights Reserved Tami Ledbetter RN, BSN [email or web address] Office: [phone] [facility]
--- NOTE | 2018-02-15 13:25 | PDOC.GSPN ---
Surgery Progress Note: Subj - Subjective Narrative: Feels better. Still a little bloated and sore but not nauseated, and passing flatus and stool. Abd soft, sl TTP lower abd but better than yesterday. A/P) Doing better. Angelica advancement of diet. OK to DC home from surgical standpoint. Surgery Progress Note: Obj - Vital signs Vital signs: Vital Signs - Most Recent Temp Pulse Resp BP Pulse Ox 97.8 F 69 16 151/80 H 94 L 02/15/18 08:00 02/15/18 08:00 02/15/18 08:00 02/15/18 07:50 02/15/18 08:00 Surgery Progress Note: Results - Labs Result Diagrams: 02/13/18 09:24 02/15/18 06:31 Lab results: Laboratory Results - last 24 hr 02/15/18 06:31 Sodium 139 Potassium 3.3 L Chloride 103 Carbon Dioxide 33 H Anion Gap 6 L BUN 8 L Creatinine 0.66 Estimated GFR (MDRD) 88 Glucose 90 Calcium 9.3 Phosphorus 1.5 L Magnesium 1.7
[2018-02-15] MEDS ORDERED: Furosemide 20 MG/2 ML VIAL SLOW IVP SCH (14:15)
--- NOTE | 2018-02-15 17:17 | PDOC.PN ---
- Subjective Encounter Start Date: 02/15/18 Encounter Start Time: 14:00 Subjective: pt up in bed still has abdominal pain but tolerating her meals and having -: bowel movements - Objective Resuscitation Status: Resuscitation Status FULL:Full Resuscitation Vital Signs & Weight: Vital Signs (12 hours) Temp Pulse Resp BP Pulse Ox 02/15/18 08:00 97.8 F 69 16 94 L 02/15/18 07:50 97.8 F 69 16 151/80 H 94 L Weight Admit Weight 148 lb Weight 148 lb 9 oz I&O: 02/14/18 02/15/18 02/16/18 06:59 06:59 06:59 Intake Total 2065 3045 Output Total 100 150 Balance 1965 2895 Result Diagrams: 02/13/18 09:24 02/15/18 06:31 Phys Exam - Physical Examination Neck: no nodes, no JVD, supple, full ROM Respiratory: no wheezing, no rales, no rhonchi, wheezing present, clear to auscultation bilateral Cardiovascular: RRR, no significant murmur, no rub, gallop, irregular Gastrointestinal: soft, positive bowel sounds mild tenderness generalized Dx/Plan (1) Abdominal pain Code(s): R10.9 - UNSPECIFIED ABDOMINAL PAIN Status: Acute (2) SBO (small bowel obstruction) Code(s): K56.609 - UNSP INTESTNL OBST, UNSP TO PARTIAL VERSUS COMPLETE OBST Status: Acute (3) UTI (urinary tract infection) Status: Acute - Plan sbo resolved, pt is eating -: pt wants to stay overnight and go home in am -: she has less than 10,000 colonies of beta strep she got 4 days of abx -: gave her a dose of lasix iv and started her on her home po dose * . Review of Systems - Review of Systems Respiratory: negative: Cough, Dry, Shortness of Breath, Hemoptysis, SOB with Excertion, Pleuritic Pain, Sputum, Wheezing Cardiovascular: negative: chest pain, palpitations, orthopnea, paroxysmal nocturnal dyspnea, edema, light headedness, other Gastrointestinal: Abdominal Pain Genitourinary: negative: Dysuria, Frequency, Incontinence, Hematuria, Retention , Other - Medications/Allergies Allergies/Adverse Reactions: Allergies Allergy/AdvReac Type Severity Reaction Status Date / Time Sulfa (Sulfonamide Allergy Severe Verified 02/11/18 22:51 Antibiotics) rifampin Allergy Mild Nausea Verified 02/11/18 22:51 sulfamethoxazole Allergy Mild Rash Verified 02/11/18 22:50 [From Bactrim] trimethoprim [From Bactrim] Allergy Mild Rash Verified 02/11/18 22:50 hyoscyamine [Hyoscyamine] Allergy Nausea Verified 02/11/18 22:51 Immitation Seafood Allergy Severe Nausea Uncoded 07/29/14 22:50 Medications: Current Medications Acetaminophen (Tylenol) 650 mg PO Q4H PRN PRN Reason: Headache/Fever or Pain Atorvastatin Calcium (Lipitor) 10 mg PO [facility] Last Admin: 02/14/18 21:17 Dose: 10 mg Citalopram Hydrobromide (Celexa) 20 mg PO DAILY [facility] Last Admin: 02/15/18 08:12 Dose: 20 mg Clopidogrel Bisulfate (Plavix) 75 mg PO [facility] Last Admin: 02/14/18 21:17 Dose: 75 mg Enoxaparin Sodium (Lovenox) 40 mg SC 0900 [facility] Last Admin: 02/15/18 08:13 Dose: Not Given Fentanyl (Sublimaze) 25 mcg SLOW IVP Q2H PRN PRN Reason: Severe Pain (7-10) Last Admin: 02/13/18 11:10 Dose: 25 mcg Furosemide (Lasix) 20 mg SLOW IVP NOW [facility] Stop: 02/15/18 18:00 Last Admin: 02/15/18 14:28 Dose: 20 mg Gabapentin (Neurontin) 900 mg PO BID [facility] Last Admin: 02/15/18 08:12 Dose: 900 mg Levothyroxine Sodium (Synthroid) 75 mcg PO 0600 [facility] Last Admin: 02/15/18 05:16 Dose: 75 mcg Lorazepam (Ativan) 0.5 mg PO Q8H PRN PRN Reason: Anxiety Last Admin: 02/13/18 22:16 Dose: 0.5 mg Metoprolol Succinate (Toprol Xl) 100 mg PO DAILY [facility] Last Admin: 02/15/18 08:13 Dose: 100 mg Ondansetron HCl (Zofran) 4 mg IVP Q6H PRN PRN Reason: Nausea/Vomiting Last Admin: 02/14/18 16:51 Dose: 4 mg Ondansetron HCl (Zofran) 4 mg SLOW IVP Q6H PRN PRN Reason: Nausea/Vomiting (Imatinib Mesylate [ (Gleevec] 100 Mg)) 0 each PO HS JOIE Last Admin: 02/14/18 21:17 Dose: 1 each Phenol (Chloraseptic [place] 180 Ml Bot) 1 ml PO BIDPRN PRN PRN Reason: Sore Throat Last Admin: 02/12/18 14:25 Dose: 1 spr Throat Lozenges (Cepastat Lozenges) 1 corey PO Q2H PRN PRN Reason: Sore Throat
[2018-02-15] MEDS: Clopidogrel Bisulfate 75 MG TAB PO SCH (21:17)
[2018-02-15] MEDS: Atorvastatin Calcium 10 MG TAB PO SCH (21:17)
[2018-02-15] MEDS: Lorazepam 0.5 MG TAB PO PRN (22:01)
[2018-02-16 04:30] LABS: Anion Gap 8 mmol/L (10-20); BUN (Urea Nitrogen) 8 mg/dL (9.8-20.1); Calc. Creatinine Clearance 90 mL/min (70-130); Calcium 8.8 mg/dL (7.8-10.44); Carbon Dioxide 30 mmol/L (23-31); Chloride 103 mmol/L (98-107); Estimated GFR-MDRD Greater than 90; Glucose 108 mg/dL (83-110); Magnesium 1.4 mg/dL (1.6-2.6); Phosphorus 2.1 mg/dL (2.3-4.7); Sodium 138 mmol/L (136-145)
[2018-02-16] MEDS: Levothyroxine Sodium 75 MCG TAB PO SCH (06:19)
[2018-02-16 07:24] VITALS: TEMP 98
[2018-02-16] MEDS: Enoxaparin Sodium 40 MG/0.4 ML SYRINGE SC SCH (08:08)
[2018-02-16] MEDS: Citalopram 20 MG TAB PO SCH (08:08)
[2018-02-16] MEDS: Gabapentin 300 MG CAP PO SCH (08:08)
[2018-02-16 11:35] VITALS: BP 138/79
--- NOTE | 2018-02-16 22:41 | DIS ---
DATE OF ADMISSION: 02/11/2018 DATE OF DISCHARGE: 02/16/2018 DISCHARGE DIAGNOSES: 1. Small-bowel obstruction, resolving with conservative measures. 2. Abdominal pain secondary to #1, resolved. 3. Urinary tract infection with beta-hemolytic streptococcus. 4. Gastrointestinal stromal tumor. CONSULTATIONS: Dr. Jarquin with General Surgery Service. Dr. Hook from Medical Oncology Service. PERTINENT LABORATORY AND X-RAY FINDINGS: Potassium ranged between 3.0-4.4, creatinine ranged between 0.65-1.24, calcium ranged between 8.8-10.5. Lactic acid level 1.7, lipase 25. CBC showed a white b lood cell count ranged between 4.1-6.8, hemoglobin ranged between 9.6-10.8, MCV 100. Urine culture d ated 02/11/2018, showed less than 10,000 colonies of beta-hemolytic streptococcus species. Portable chest x-ray dated 02/11/2018, showed no acute cardiopulmonary process. CT of the abdomen and pelvis dated 02/11/2018, showed 2 pelvic masses seen on previous exam. Partial small-bowel obstruction with dilated loops of small bowel in the left aspect of the abdomen. Stable abdominal aortic aneurysm me asuring 4.9 cm. Colonic diverticulosis noted. Abdominal radiographs dated 02/13/2018, showed mildly dilated loops of small bowel in the upper central abdomen. Small bowel series dated 02/14/2018, srinivasa wed resolution of small-bowel obstruction. HOSPITAL COURSE: Patient was admitted to the medical floor after initially presenting with abdominal pain in the context of neuroendocrine tumor. The patient underwent multiple imaging modalities of t he abdominal region, showing evidence of small-bowel obstruction likely due to adhesions. The patien t was evaluated by the General Surgery Service with recommendations for conservative management and N G tube placement with decompression. The patient was slow to clinically improve with conservative pura quarles, however, was able to advance to removal of the NG tube and start her on clear liquids. Sma ll bowel radiographs on 02/14/2018, showed overall resolving small-bowel obstruction. The patient wa s treated for mild cystitis with beta-hemolytic streptococcus species. The patient was tolerating re gular oral intake by the time of discharge without recurrence of abdominal pain. I have examined the patient at the time of discharge and discussed followup instructions at which poi nt the patient verbalized understanding and agreement. The patient overall clinically stable and valentine dy for discharge on 02/16/2018. DISCHARGE MEDICATIONS: 1. Celexa 20 mg 1 tab p.o. daily. 2. Plavix 75 mg p.o. daily. 3. Lasix 20 mg p.o. daily. 4. Gralise 900 mg p.o. b.i.d. 5. Glucosamine 1 capsule p.o. daily. 6. Gleevec 300 mg p.o. at bedtime. 7. Krill oil 500 mg p.o. daily. 8. Lactobacillus 1 capsule p.o. daily. 9. Levothyroxine 75 mcg p.o. daily. 10. Lisinopril 20 mg p.o. daily. 11. Lorazepam 0.5 mg p.o. t.i.d. 12. Toprol-XL 100 mg p.o. daily. 13. Zofran ODT 8 mg p.o. q.6 hours p.r.n. 14. Pravachol 40 mg p.o. at bedtime. 15. Coenzyme Q10 100 mg p.o. daily. 16. Vitamin B complex 1 tablet p.o. daily. FOLLOWUP: The patient is to follow up with her primary care provider, Dr. Erica Hook within 7 days of discharge. CONDITION ON DISCHARGE: Stable. ACTIVITY: Ad jaswinder. DIET: Heart healthy. CODE STATUS: FULL. DISPOSITION: Home, 02/16/2018. Total time preparing and coordinating discharge is 34 minutes.
== END 2018-02-16 14:16 | disposition home or self-care (01) | DRG 389 ==
LOC: ERS 13:42 → T4-B 20:04
PROVIDERS: ADMIT Hospitalist; ATTEND Hospitalist
DX: K56.600 Partial intestinal obstruction, unspecified as to cause (principal); C49.A3 Gastrointestinal stromal tumor of small intestine; G62.9 Polyneuropathy, unspecified; N30.90 Cystitis, unspecified without hematuria; E86.0 Dehydration; D53.9 Nutritional anemia, unspecified; I25.10 Atherosclerotic heart disease of native coronary artery without angina pectoris; E78.00 Pure hypercholesterolemia, unspecified; E03.9 Hypothyroidism, unspecified; I10 Essential (primary) hypertension; F41.9 Anxiety disorder, unspecified; M35.00 Sjogren syndrome, unspecified; I73.00 Raynaud's syndrome without gangrene; I71.4 Abdominal aortic aneurysm, without rupture; B95.4 Other streptococcus as the cause of diseases classified elsewhere; I25.2 Old myocardial infarction; Z88.2 Allergy status to sulfonamides; Z88.8 Allergy status to other drugs, medicaments and biological substances; Z79.02 Long term (current) use of antithrombotics/antiplatelets; Z79.899 Other long term (current) drug therapy; Z95.5 Presence of coronary angioplasty implant and graft
CPT/HCPCS: 36415; 71045; 74019; 74177; 74250; 80048; 80053; 81003; 81015; 82553; 83605; 83690; 83735; 84100; 84484; 85025; 87086; 93005; 96361; 96365; 96375; 96376; C9113; J0696; J1650; J1940; J2270; J2405; J3010; J7050

== ENCOUNTER 2018-05-26 09:33 | Outpatient (CLI) | payer MEDICARE ==
--- NOTE | 2018-05-26 12:04 | CT ---
CT CHEST AND ABDOMEN AND PELVIS WITH IV CONTRAST: Date: 05/26/18 Multiple axial tomograms obtained through chest, abdomen, and pelvis with IV enhancement. INDICATION: GIST tumor. Comparison made to prior CTs of abdomen dated 10/25/17 and 02/11/18. FINDINGS: CT CHEST: Lung johns show chronic parenchymal change. There are scattered blebs and early bullous changes. Per ipheral stranding and interstitial prominence appears chronic. The lungs show no evidence of infiltra te, effusion, or pulmonary mass/nodule. The mediastinum is unremarkable with no evidence of adenopathy. Nonspecific hilar lymph nodes are see n bilaterally measuring up to 1.0 cm. There are mildly enlarged lymph nodes in the axillary regions, more prominent on the right. Numerous right axillary lymph nodes are seen measuring 1.0-1.5 cm. There are retropectoral lymph nodes bilater ally measuring up to 1.0 cm. Osseous structures are unremarkable. IMPRESSION: 1. There is axillary adenopathy as described above, more prominent on the right. No prior chest CTs available for comparison. 2. Chronic lung parenchymal changes. CT ABDOMEN AND PELVIS: The low density lesion in the peripheral right lobe of the liver has been previously described and is unchanged measuring approximately 1.4 cm. Liver, spleen, and pancreas are otherwise unremarkable. Adrenal glands normal. Stomach and duodenum unremarkable. Small bowel loops are normal caliber. The mass seen along the anterior abdominal wall in the mid lower abdomen is again noted. This mass is minimally smaller than on the prior exam of 02/11/18, measuring 5.0 x 3.3 cm today with axial measur ements previously described at 5.6 x 4.0 cm. However, the mesenteric mass at this same level but more posterior in the abdomen has enlarged since the prior study. This circumscribed rounded mass measures 5.8 x 4.8 cm today. Previous measurement of 02/11/18 recorded at approximately 3.7 x 3.1 cm. The abdominal aortic aneurysm is again noted. There is calcification in the wall of this aneurysm wit h peripheral thrombus within this aneurysm. AP dimension of this aneurysm in the axial plane today re corded at approximately 4.7 cm, not significantly changed from 02/11/18, at which time AP dimension i n the axial plane was recorded at 4.9 cm. Sigmoid diverticulosis again noted with thickened wall and luminal narrowing throughout the sigmoid c olon. Osseous structures are unremarkable. IMPRESSION: 1. The intra-abdominal masses are again seen. There has been enlargement of the mesenteric mass whic h is seen in more posterior aspect of lower abdomen when compared to the prior study. The more anteri or mass along the anterior abdominal wall has not significantly changed, possibly slightly smaller. 2. Low density lesion in the liver is stable. 3. Abdominal aortic aneurysm appears stable. 4. Severe diverticulosis sigmoid colon again noted. POS: FABIOLA
== END 2018-05-26 09:34 | disposition home or self-care (01) ==
LOC: SCSCT 09:33
PROVIDERS: ATTEND Internal Medicine Hematology & Oncology
DX: C49.A0 Gastrointestinal stromal tumor, unspecified site (principal); R19.09 Other intra-abdominal and pelvic swelling, mass and lump; K76.9 Liver disease, unspecified; I71.4 Abdominal aortic aneurysm, without rupture; K57.30 Diverticulosis of large intestine without perforation or abscess without bleeding; R59.0 Localized enlarged lymph nodes
CPT/HCPCS: 71260; 74177

== ENCOUNTER 2018-06-10 08:32 | Outpatient (CLI) | payer MEDICARE ==
--- NOTE | 2018-06-10 11:12 | PET ---
PET CT: HISTORY: GIST with abdominal masses. COMPARISON: CT chest, abdomen, and pelvis from 05/26/2018. TECHNIQUE: A PET CT was performed from the skull base through the mid thigh, after the administration of 10.2 mi llicuries of F18 FDG. FINDINGS: The two masses in the abdomen are hypermetabolic. The larger, more posterior mass demonstrates sligh t hypermetabolic activity, with a max SUV of 2.7. The more anterior mass has a max SUV of 2.3. No areas of hypermetabolic activity are seen in the neck or chest. No suspicious hypermetabolic lesi ons are seen in the skeleton. CT images used for attenuation correction show an aneurysm of the abdominal aorta. Scattered diverti cula are seen in the colon. IMPRESSION: The two masses in the abdomen demonstrate metabolic/minimally hypermetabolic activity. No areas of e xtensive hypermetabolic activity are seen on this examination. POS: FABIOLA
== END 2018-06-10 08:33 | disposition home or self-care (01) ==
LOC: PET 08:32
PROVIDERS: ATTEND Internal Medicine Hematology & Oncology
DX: C49.A0 Gastrointestinal stromal tumor, unspecified site (principal)
CPT/HCPCS: 78815; A9552

== ENCOUNTER 2018-09-01 09:56 | Outpatient (CLI) | payer MEDICARE ==
--- NOTE | 2018-09-01 13:17 | PET ---
PET CT: HISTORY: GIST (gastrointestinal stromal tumor). COMPARISON: 06/10/18. CT chest/abdomen/pelvis dated 05/26/18. TECHNIQUE: A PET CT was performed from the skull base through the mid thigh after administration of 9.9 mCi F18- FDG. FINDINGS: Two masses are again seen in the abdomen. One is seen in the periumbilical region. This has decreased in size and now measures 4.3 cm in greatest dimension. Previously, this measured 5.0 cm in the same dimension. The anterior mass is barely hypermetabolic with a max SUV value of 2.5. In the posterior a bdomen, there is a mesenteric mass which has also decreased in size and now measures 3.6 cm in size, when it previously measured 6.0 cm in size. This lesion is not hypermetabolic with a max SUV value of 2.1. No suspicious areas of hypermetabolic activity are seen within the neck or chest. No suspicious areas of hypermetabolic activity seen within the skeleton. There is ectasia of the abdominal aorta, which also contains atherosclerotic disease. There are numer ous diverticula in the colon. IMPRESSION: There are two persistent masses in the abdomen, which have decreased in size and hypermetabolic activ ity compared to the prior examination. These are consistent with the patient's GIST tumors. POS: FABIOLA
== END 2018-09-01 09:57 | disposition home or self-care (01) ==
LOC: PET 09:56
PROVIDERS: ATTEND Internal Medicine Hematology & Oncology
DX: C49.A0 Gastrointestinal stromal tumor, unspecified site (principal); R19.00 Intra-abdominal and pelvic swelling, mass and lump, unspecified site; R94.8 Abnormal results of function studies of other organs and systems
CPT/HCPCS: 78815; A9552

== ENCOUNTER 2019-03-14 09:38 | Outpatient (CLI) | payer MEDICARE ==
[2019-03-14 13:14] LABS: Hemoglobin 10.7 g/dL (12.0-16.0)
--- NOTE | 2019-03-14 13:22 | CT ---
EXAM: CT Abdomen Pelvis W Con PROVIDED CLINICAL HISTORY: GIST tumor COMPARISON: 02/02/2019 [facility] [place] FINDINGS: The visualized lung bases are free of significant opacity. Interval enlargement of the 3 previously demonstrated peritoneal based soft tissue masses within the left and midline abdomen. The largest of these is located left of midline at the level of the pelvic inlet. It measures about 8 .4 x 10 cm in greatest transverse dimensions and at least 10.8 cm in craniocaudal dimension on today's examination (as compared to approximately 6.7 x 5.8 cm in greatest transverse dimensions and 5.8 cm in craniocaudal dimension on the prior examination referenced above). The other 2 masses also demonstrate interval growth, with the mass at the anterior aspect of the abdo men in the midline just inferior to the umbilicus measuring about 8.8 cm in greatest transverse dimension on the current study as compared to about 6.5 cm on the prior. The other mass is located cr anial and left lateral to the largest mass and is partially confluent with/abuts the larger mass. It measures about 5.7 cm in greatest transverse dimension on the current study as compared to about 4 .9 cm on the prior. Hypodensity involving the posterior segment of the right hepatic lobe is stable compared with multipl e prior examinations. The spleen, pancreas, kidneys and adrenal glands also appear stable with extrarenal pelvis on the right again seen. Infrarenal abdominal aortic aneurysm measuring about 5.1 cm in greatest transverse dimension, appeari ng larger than on prior CT examination of 05/26/2018, at which time it measured about 4.7 cm. There is no evidence for bowel obstruction. Prominent sigmoid colonic diverticulosis changes are rede monstrated. Extensive vascular calcifications are seen. The osseous structures demonstrate no concerning lytic or blastic lesions. IMPRESSION: 1. Interval growth of peritoneal based soft tissue masses (presumably reflecting metastatic gist tumo r) with respect to the 02/02/2019 examination. 2. Infrarenal abdominal aortic aneurysm is redemonstrated, now measuring about 5.1 cm. If not previou sly performed, vascular surgical consultation is recommended.
== END 2019-03-14 09:39 | disposition home or self-care (01) ==
LOC: SCSCT 09:38
PROVIDERS: ATTEND Internal Medicine Hematology & Oncology
DX: C49.A0 Gastrointestinal stromal tumor, unspecified site (principal); D50.8 Other iron deficiency anemias; N18.2 Chronic kidney disease, stage 2 (mild); I71.4 Abdominal aortic aneurysm, without rupture; K66.8 Other specified disorders of peritoneum
CPT/HCPCS: 36415; 74177; 82565; 85014; 85018